=== PATIENT | male | born 1950 | race Caucasian/White ===

== ENCOUNTER 2016-12-22 10:34 | Inpatient (IN) | payer MEDICARE, OTHER ==
[~2016-12-22] VITALS: Ht 177.8 cm; Wt 83.8 kg
[2016-12-22] VITALS (444 sets, daily range): BP systolic 115–140; BP diastolic 54–86; PULSE 66–128; TEMP 98.4–98.9; O2SAT 89–100
[2016-12-22 11:25] LABS: BASO % 0.6 % (0.0-2.0); EOS # 0.1 (0.0-0.7); EOS % 1.9 % (0-4.0); GRAN # 2.5 (1.4-6.5); GRAN % 38.7 % (42.2-75.2); HEMATOCRIT 40.7 % (42.0-52.0); HEMOGLOBIN 13.5 g/dl (13.5-18.0); LYMPH # 2.8 (1.2-3.4); LYMPH % 43.4 % (20.0-51.0); MEAN CELL VOLUME 92 fl (80.0-100.0); MEAN CORPUSCULAR HEMOGLOBIN 31 pg (27.0-31.0); MEAN CORPUSCULAR HGB CONC 33 g/dl (33.0-37.0); MEAN PLATELET VOLUME 11.1 fl (7.4-10.4); MONO % 15.2 % (1.7-9.3); PLATELET COUNT 299 K/mm3 (130-400); RED BLOOD COUNT 4.42 M/mm3 (4.20-5.60); REDCELL DISTRIBUTION WIDTH-CV 12.8 % (11.5-14.5); WHITE BLOOD COUNT 6.4 K/mm3 (4.8-10.8)
[2016-12-22 11:33] LABS: ADJUSTED CALCIUM 10.3 mg/dL (8.4-10.2); ALANINE AMINOTRANSFERASE 45 U/L (21-72); ALBUMIN 3.8 gm/dL (3.5-5.0); ALKALINE PHOSPHATASE 128 U/L (50-136); ANION GAP 15 mmol/L (7-16); BILIRUBIN,TOTAL 1.1 mg/dL (0.0-1.0); BLOOD UREA NITROGEN 16 mg/dL (9-20); CALCIUM 10.1 mg/dL (8.4-10.2); CARBON DIOXIDE 21 mmol/L (22-30); CHLORIDE 104 mmol/L (98-107); CREATININE, serum 0.83 mg/dL (0.66-1.25); GLUCOSE 117 mg/dL (74-106); SODIUM 141 mmol/L (137-145); TOTAL PROTEIN 7.6 gm/dL (6.4-8.2)
[2016-12-22 11:43] LABS: INR 1.1 (0.8-3.0); PROTHROMBIN TIME 12.5 SECONDS (9.7-12.8)
[2016-12-22 11:44] LABS: TROPONIN-I < 0.012 ng/mL (0.000-0.034)
[2016-12-22] MEDS ORDERED: PRILOSEC 20MG20 MG PO (11:45)
[2016-12-22] MEDS ORDERED: LOTREL 10 MG-401 CAP PO (11:45)
[2016-12-22 11:46] LABS: PARTIAL THROMBOPLASTIN TIME 34.3 SECONDS (26.0-37.0)
[2016-12-22] MEDS ORDERED: NIACOR500 MG PO (11:46)
[2016-12-22] MEDS ORDERED: MASON NATURAL1200 MG PO (11:46)
[2016-12-22] MEDS ORDERED: ASPIRIN 81M81 MG/TA2 PO (11:46)
[2016-12-22] MEDS ORDERED: ONE DAILY1 TA1 PO (11:47)
[2016-12-23] VITALS (858 sets, daily range): BP systolic 102–131; BP diastolic 60–86; PULSE 83–111; TEMP 97.9–98.4; O2SAT 86–98
[2016-12-23 06:47] LABS: CHOLESTEROL 139 mg/dL (120-200); HDL CHOLESTEROL 26 mg/dL; LDL CHOLESTEROL 92 mg/dL; TRIGLYCERIDE 104 mg/dL
[2016-12-23 06:49] LABS: TROPONIN-I < 0.012 ng/mL (0.000-0.034)
[2016-12-23] MEDS ORDERED: TOPROL XL100 MG PO (15:07)
[2016-12-23] MEDS ORDERED: CARTIA XT300 MG PO (15:08)
[2016-12-23] MEDS ORDERED: TAPAZOLE5 MG PO (15:11)
[2016-12-23] MEDS ORDERED: XARELTO20 MG PO (15:13)
[2016-12-23 18:32] LABS: .ANTI-MICROSOMAL ANTIBODY <3 IU/mL (0-6); .THYROGLOBULIN AB 142 IU/mL (0-5)
== END 2016-12-23 15:55 | disposition home or self-care (01) | DRG 310 ==
LOC: COL.ER 10:34 → ICU 12:03 → IMCU 19:00
PROVIDERS: Emergency Medicine; Nurse Practitioner Family
DX: I48.91 Unspecified atrial fibrillation (principal); I10 Essential (primary) hypertension; E05.90 Thyrotoxicosis, unspecified without thyrotoxic crisis or storm
CPT/HCPCS: 99223-AI; 99239; J1650; J7030; J7040; J7050

== ENCOUNTER → 2017-01-09 | Outpatient (CLI) | payer MEDICARE, OTHER ==
[~2017-01-09] MED LIST: ASPIRIN 81M81 MG/TA2 PO; CARTIA XT300 MG PO; LOTREL 10 MG-401 CAP PO; MASON NATURAL1200 MG PO; NIACOR500 MG PO; ONE DAILY1 TA1 PO; PRILOSEC 20MG20 MG PO; TAPAZOLE5 MG PO; TOPROL XL100 MG PO; XARELTO20 MG PO
== END ==
LOC: COL.RAD 09:46
DX: E05.80 Other thyrotoxicosis without thyrotoxic crisis or storm (principal); R94.6 Abnormal results of thyroid function studies; I48.91 Unspecified atrial fibrillation
CPT/HCPCS: A9516

== ENCOUNTER 2018-06-27 06:19 | Day surgery (SDC) | payer MEDICARE, OTHER ==
[~2018-06-27] VITALS: Ht 177.8 cm; Wt 97.7 kg
[2018-06-27] VITALS (7 sets, daily range): BP systolic 129–157; BP diastolic 70–89; PULSE 55–68; TEMP 97.7
[~2018-06-27 06:19] MED LIST changes: +FISH OIL 500 M1 EAC1 PO; -MASON NATURAL1200 MG PO
[2018-06-27 07:06] LABS: HEMATOCRIT 42.7 % (42.0-52.0); HEMOGLOBIN 14.6 g/dl (13.5-18.0); MEAN CELL VOLUME 93 fl (80.0-100.0); MEAN CORPUSCULAR HEMOGLOBIN 32 pg (27.0-31.0); MEAN CORPUSCULAR HGB CONC 34 g/dl (33.0-37.0); MEAN PLATELET VOLUME 11.3 fl (7.4-10.4); PLATELET COUNT 235 K/mm3 (130-400); REDCELL DISTRIBUTION WIDTH-CV 13.9 % (11.5-14.5)
[2018-06-27 07:17] LABS: CALCIUM 8.9 mg/dL (8.4-10.2); CREATININE, serum 1.1 mg/dL (0.66-1.25); POTASSIUM 4.1 mmol/L (3.4-5.0)
[2018-06-27 07:20] LABS: INR 1.4 (0.8-3.0); PROTHROMBIN TIME 16.4 SECONDS (9.7-12.8)
[2018-06-27] MEDS ORDERED: SYNTHROID0.1 MG/TAB PO (08:11)
[2018-06-27] MEDS ORDERED: COUMADIN 5MG5 MG/TAB PO (08:11)
[2018-06-27] MEDS ORDERED: TOPROL XL100 MG PO (08:11)
[2018-06-27] MEDS ORDERED: LOTREL 10 MG-401 CAP PO (08:12)
[2018-06-27] MEDS ORDERED: ASPIRIN 81M81 MG/TA2 PO (08:13)
[2018-06-27] MEDS ORDERED: [UNRECOGNIZED DRUG - CODE] PO (08:14)
[2018-06-27] MEDS ORDERED: LIPITOR 80MG80 MG PO (09:49)
== END 2018-06-27 11:09 | disposition short-term general hospital (02) ==
LOC: COL.CAR 06:19
PROVIDERS: Internal Medicine Cardiovascular Disease
DX: I25.10 Atherosclerotic heart disease of native coronary artery without angina pectoris (principal); R94.39 Abnormal result of other cardiovascular function study; I48.91 Unspecified atrial fibrillation; I10 Essential (primary) hypertension; E05.00 Thyrotoxicosis with diffuse goiter without thyrotoxic crisis or storm; I48.0 Paroxysmal atrial fibrillation; I51.7 Cardiomegaly; Z79.01 Long term (current) use of anticoagulants; Z88.2 Allergy status to sulfonamides; Z80.0 Family history of malignant neoplasm of digestive organs; Z82.49 Family history of ischemic heart disease and other diseases of the circulatory system
CPT/HCPCS: C1760; C1894; J1644; J2250; J3010; Q9967

== ENCOUNTER 2018-08-07 11:00 | Outpatient (RCR) | payer MEDICARE, OTHER ==
[~2018-08-07 11:00] MED LIST changes: +COUMADIN 5MG5 MG/TAB PO; +LIPITOR 80MG80 MG PO; +SYNTHROID0.1 MG/TAB PO; +[UNRECOGNIZED DRUG - CODE] PO
== END 2018-10-21 | disposition home or self-care (01) ==
LOC: WSPT
DX: Z48.812 Encounter for surgical aftercare following surgery on the circulatory system (principal); R53.81 Other malaise; Z95.1 Presence of aortocoronary bypass graft
CPT/HCPCS: G8978-GP; G8979-GP

== ENCOUNTER → 2018-11-08 | Outpatient (RCR) | payer MEDICARE | END | disposition home or self-care (01) | LOC: COL.CR | DX: Z48.812 Encounter for surgical aftercare following surgery on the circulatory system (principal); Z95.1 Presence of aortocoronary bypass graft; I25.10 Atherosclerotic heart disease of native coronary artery without angina pectoris ==

== ENCOUNTER → 2018-11-15 | Outpatient (CLI) | payer MEDICARE | LOC: COL.RAD 13:35 | DX: D37.05 Neoplasm of uncertain behavior of pharynx (principal); E04.2 Nontoxic multinodular goiter; I65.21 Occlusion and stenosis of right carotid artery; Z90.89 Acquired absence of other organs | CPT/HCPCS: Q9967 ==

== ENCOUNTER → 2019-10-07 | Outpatient (CLI) | payer MEDICARE | LOC: COL.PUL 09-25 08:00 | DX: R06.02 Shortness of breath (principal); R06.09 Other forms of dyspnea ==

== ENCOUNTER → 2019-10-22 | Outpatient (CLI) | payer MEDICARE | LOC: COL.RAD 11:23 | DX: N18.3 Chronic kidney disease, stage 3 (moderate) (principal) ==

== ENCOUNTER → 2019-12-10 | Outpatient (CLI) | payer MEDICARE ==
[2019-12-10 12:50] LABS: INR 1.4 (0.8-3.0); PROTHROMBIN TIME 16.3 SECONDS (9.7-12.8)
== END ==
LOC: COL.LAB 11:11
PROVIDERS: Orthopaedic Surgery
DX: Z51.81 Encounter for therapeutic drug level monitoring (principal); Z79.01 Long term (current) use of anticoagulants